=== PATIENT | female | born 1975 | race American Indian/Alaskan Native ===

== ENCOUNTER 2019-02-27 14:42 | Emergency (ER) | payer SELFPAY ==
[2019-02-27] MEDS ORDERED: DUONEB *Not for PRN Use IH ONE (15:18)
--- NOTE | 2019-02-27 15:19 | Event Note ---
ED Screening Note Date of service: 02/27/19 ED Screening Note: 44 y o f presents with cough and wheezing worsening since thursday states taking tessalon perles with no relief was dx with bronchitis This initial assessment/diagnostic orders/clinical plan/treatment(s) is/are subject to change based on patients health status, clinical progression and re- assessment by fellow clinical providers in the ED. Further treatment and workup at subsequent clinical providers discretion. Patient/guardian urged not to elope from the ED as their condition may be serious if not clinically assessed and managed. Initial orders include: cxr, duoneb treatment
[2019-02-27 15:20] VITALS: BP 200/88
--- NOTE | 2019-02-27 16:28 | XRay Report ---
CHEST 2 VIEWS INDICATION / CLINICAL INFORMATION: pain/cough. COMPARISON: None available. FINDINGS: SUPPORT DEVICES: None. HEART / MEDIASTINUM: No significant abnormality. LUNGS / PLEURA: No significant pulmonary or pleural abnormality. No pneumothorax. ADDITIONAL FINDINGS: No significant additional findings. IMPRESSION: No significant abnormality Signer Name: Tyrone Bryant MD FACR Signed: 02/27/2019 4:23 PM Workstation Name: [id number]
[2019-02-27] MEDS ORDERED: PROVENTIL IH ONE (18:02)
[2019-02-27] MEDS ORDERED: SOLU-Medrol IM ONE (18:02)
--- NOTE | 2019-02-27 19:17 | Emergency Department Report ---
- General Chief Complaint: Upper Respiratory Infection Stated Complaint: CHEST PAIN/WHEEZING Time Seen by Provider: 02/27/19 15:16 Source: patient Mode of arrival: Ambulatory Limitations: No Limitations - History of Present Illness Initial Comments: 34 year old -[place] female presents to the emergency room with wheezing and chest tightness for one week. Patient complains of productive greenish yellow sputum. Patient states that she was seen on Thursday and was prescribed prednisone and albuterol which she reports she has completed the prednisone and has not improved her symptoms. Patient does have a history of asthma hypertension and A. fib and thyroid disease. Patient denies being around chemicals. Patient does report she didn't develop with and propanolol. Patient states his wheezing headache and chest pain. MD Complaint: cough Onset/Timin -: week(s) Severity scale (0 -10): 6 Consistency: constant Improves With: nothing Associated Symptoms: cough, chest pain, shortness of breath - Related Data Home Medications Medication Instructions Recorded Confirmed Last Taken ALBUTEROL Inhaler (OR & NICU) 2 puff IH QID PRN 04/17/13 04/17/13 Unknown [Proair] Previous Rx's Medication Instructions Recorded Last Taken Type Clindamycin [Clindamycin CAP] 300 mg PO Q8H #30 cap 04/17/13 Unknown Rx Fluticasone Propionate [Flonase] 2 sprays NS DAILY #1 spray.susp 04/17/13 Unknown Rx Loratadine [Claritin] 10 mg PO DAILY #30 tablet 04/17/13 Unknown Rx Prednisone 40 mg PO QDAY #10 tablet 04/17/13 Unknown Rx Hydrocodone Bit/Acetaminophen 1 each PO Q4-6H PRN #10 tablet 05/04/13 Unknown Rx [Lortab 5-500 Tablet] Ibuprofen [Motrin 600 MG tab] 600 mg PO Q8H PRN #20 tablet 05/04/13 Unknown Rx Fluconazole [Diflucan] 150 mg PO QDAY #6 tablet 05/13/13 Unknown Rx Mupirocin [Bactroban 2% Oint] 1 applic TP TID #22 gram 05/13/13 Unknown Rx Sulfamethoxazole/Trimethoprim 1 each PO BID #20 tablet 05/13/13 Unknown Rx [Bactrim DS] ALBUTEROL NEB's [Proventil 0.083% 2.5 mg IH TID PRN #1 box 02/27/19 Unknown Rx NEBS] Azithromycin [Zithromax Z-LIZZIE] 250 mg PO QDAY #6 tablet 02/27/19 Unknown Rx Benzonatate [Tessalon Perles] 100 mg PO Q8HR PRN #15 capsule 02/27/19 Unknown Rx Nebulizer and Compressor [Easy Air 1 each MC TID PRN #1 each 02/27/19 Unknown Rx Compressor Nebulizer] Allergies Allergy/AdvReac Type Severity Reaction Status Date / Time Penicillins Allergy Mild Unknown Verified 04/17/13 16:19 ED Review of Systems ROS: Stated complaint: CHEST PAIN/WHEEZING Other details as noted in HPI Comment: All other systems reviewed and negative Constitutional: denies: chills, fever Eyes: denies: eye pain, eye discharge, vision change ENT: denies: ear pain, throat pain Respiratory: cough, shortness of breath, wheezing Cardiovascular: chest pain (with cough) Neurological: headache ED Past Medical Hx - Past Medical History Hx Hypertension: Yes Hx Asthma: Yes Additional medical history: Hypertythroid, AFIB - Surgical History Additional Surgical History: hx of L colapse lung as an - Social History Smoking Status: Current Some Day Smoker Substance Use Type: Alcohol, Marijuana - Medications Home Medications: Home Medications Medication Instructions Recorded Confirmed Last Taken Type ALBUTEROL Inhaler (OR & NICU) 2 puff IH QID PRN 04/17/13 04/17/13 Unknown History [Proair] Clindamycin [Clindamycin CAP] 300 mg PO Q8H #30 cap 04/17/13 Unknown Rx Fluticasone Propionate [Flonase] 2 sprays NS DAILY #1 spray.susp 04/17/13 Unknown Rx Loratadine [Claritin] 10 mg PO DAILY #30 tablet 04/17/13 Unknown Rx Prednisone 40 mg PO QDAY #10 tablet 04/17/13 Unknown Rx Hydrocodone Bit/Acetaminophen 1 each PO Q4-6H PRN #10 tablet 05/04/13 Unknown Rx [Lortab 5-500 Tablet] Ibuprofen [Motrin 600 MG tab] 600 mg PO Q8H PRN #20 tablet 05/04/13 Unknown Rx Fluconazole [Diflucan] 150 mg PO QDAY #6 tablet 05/13/13 Unknown Rx Mupirocin [Bactroban 2% Oint] 1 applic TP TID #22 gram 05/13/13 Unknown Rx Sulfamethoxazole/Trimethoprim 1 each PO BID #20 tablet 05/13/13 Unknown Rx [Bactrim DS] ALBUTEROL NEB's [Proventil 0.083% 2.5 mg IH TID PRN #1 box 02/27/19 Unknown Rx NEBS] Azithromycin [Zithromax Z-LIZZIE] 250 mg PO QDAY #6 tablet 02/27/19 Unknown Rx Benzonatate [Tessalon Perles] 100 mg PO Q8HR PRN #15 capsule 02/27/19 Unknown Rx Nebulizer and Compressor [Easy Air 1 each MC TID PRN #1 each 02/27/19 Unknown Rx Compressor Nebulizer] ED Physical Exam - General Limitations: No Limitations General appearance: alert, in no apparent distress - Head Head exam: Present: atraumatic, normocephalic - Eye Eye exam: Present: normal appearance - ENT ENT exam: Present: mucous membranes moist - Neck Neck exam: Present: normal inspection, full ROM. Absent: tenderness - Respiratory Respiratory exam: Present: respiratory distress, rhonchi - Cardiovascular Cardiovascular Exam: Present: regular rate, normal rhythm. Absent: systolic murmur, diastolic murmur, rubs, gallop - GI/Abdominal GI/Abdominal exam: Present: soft, normal bowel sounds - Back Exam Back exam: Present: normal inspection, full ROM - Neurological Exam Neurological exam: Present: alert, oriented X3 - Psychiatric Psychiatric exam: Present: normal affect, normal mood - Skin Skin exam: Present: warm, dry, intact, normal color. Absent: rash ED Course Vital Signs 02/27/19 15:17 Temperature 98.7 F Pulse Rate 81 Respiratory 18 Rate Blood Pressure 200/88 O2 Sat by Pulse 100 Oximetry Critical care attestation.: If time is entered above; I have spent that time in minutes in the direct care of this critically ill patient, excluding procedure time. ED Disposition Clinical Impression: Upper respiratory infection Qualifiers: URI type: unspecified URI Qualified Code(s): J06.9 - Acute upper respiratory infection, unspecified Disposition: TO HOME OR SELFCARE Is pt being admited?: No Does the pt Need Aspirin: No Condition: Stable Instructions: Upper Respiratory Infection (ED) Additional Instructions: Complete the antibiotics as prescribed. Use a nebulizer machine as needed for cough and wheezing. Take Tessalon Perles as needed for the cough. Follow up with her primary care provider I have listed one below for your convenience. Prescriptions: Nebulizer and Compressor [Easy Air Compressor Nebulizer] 1 each MC TID PRN #1 each PRN Reason: Wheezing ALBUTEROL NEB's [Proventil 0.083% NEBS] 2.5 mg IH TID PRN #1 box PRN Reason: Wheezing Benzonatate [Tessalon Perles] 100 mg PO Q8HR PRN #15 capsule PRN Reason: Cough Azithromycin [Zithromax Z-LIZZIE] 250 mg PO QDAY #6 tablet Referrals: [facility] [Outside] - 3-5 Days [facility] [Outside] - 3-5 Days
[2019-02-27] MEDS ORDERED: TYLENOL PO ONE (19:18)
== END 2019-02-27 20:20 | disposition home or self-care (01) ==
LOC: ED 14:42
DX: J06.9 Acute upper respiratory infection, unspecified (principal); J45.909 Unspecified asthma, uncomplicated; I10 Essential (primary) hypertension; I48.91 Unspecified atrial fibrillation; E07.9 Disorder of thyroid, unspecified; F17.200 Nicotine dependence, unspecified, uncomplicated; F12.10 Cannabis abuse, uncomplicated; Z79.899 Other long term (current) drug therapy; Z88.0 Allergy status to penicillin; Z79.1 Long term (current) use of non-steroidal anti-inflammatories (NSAID)
CPT/HCPCS: 71046; 94640; 96372; 99284; J2930